=== PATIENT | female | born 1950 | race Caucasian/White ===

== ENCOUNTER 2019-06-08 09:03 | Emergency (ER) | payer MEDICARE, BC ==
[~2019-06-08] VITALS: Ht 152.4 cm; Wt 65.0 kg
[~2019-06-08 09:03] MED LIST: ASPI-482 PO; DILT300C2 PO; LOSA50TA86 PO; NEBI5TAB2 PO; OMEP20CA5 PO; RALO60TA PO; SIMV20TA3 PO
[2019-06-08 09:40] LABS: BASO # 0.1 x10^3/uL (0.0-0.2); BASO % 1 % (0-3); EOS # 0.4 x10^3/uL (0.0-0.7); EOS % 3 % (0-3); HEMATOCRIT 48.7 % (36.0-47.0); HEMOGLOBIN 15.7 g/dL (12.0-15.5); LYMPH # 2.8 x10^3/uL (1.0-4.8); LYMPH % 18 % (24-48); MEAN CORPUSCULAR HEMOGLOBIN 29 pg (25-35); MEAN CORPUSCULAR HGB CONC 32 g/dL (31-37); MEAN CORPUSCULAR VOLUME 90 fL (79-100); MONO # 1.5 x10^3/uL (0.0-1.1); MONO % 9 % (0-9); NEUT # 11.2 x10^3uL (1.8-7.7); NEUT % 70 % (31-73); PLATELET COUNT 376 x10^3/uL (140-400); RED BLOOD COUNT 5.42 x10^6/uL (3.50-5.40); RED CELL DISTRIBUTION WIDTH 14.1 % (11.5-14.5)
--- NOTE | 2019-06-08 09:53 | RAD ---
AP portable chest radiograph Clinical History: Chest pain. An AP erect portable digital radiograph of the chest was obtained. No previous studies are available for comparison. The cardiac silhouette is mildly enlarged. The thoracic aorta is mildly tortuous. There is a large hiatal hernia which contains air. No acute pulmonary infiltrate is seen. No pneumothorax or pleural effusion is noted. Degenerative changes are seen involving the thoracic spine and both shoulders. IMPRESSION: Large hiatal hernia. No acute pulmonary infiltrate is seen. Electronically signed by: Shaggy Sandoval MD (06/08/2019 9:50 AM) [facility]
[2019-06-08] MEDS ORDERED: ALPRAZolam 0.25 MG TABLET PO ONE (10:15)
--- NOTE | 2019-06-08 10:39 | ED.ADGEN ---
Past History Past Medical History: High Cholesterol, Hypertension Past Surgical History: Hysterectomy Alcohol Use: Occasionally Drug Use: None Adult General Chief Complaint Chief Complaint High blood pressure HPI HPI Patient is a 68-year-old female with history of hypertension dyslipidemia who presents with asymptomatic hypertension. Patient states she really routinely checks blood pressure. This morning, the patient's blood pressure was 150s over 100 on second recheck. Patient became concerned as she is currently out of town in one week and wanted to have her blood checked in the emergency department. Patient denies chest pain chest tightness palpitations shortness breath, headache. She does report feeling anxious or stressed after checking her blood pressure. This noted her heart rate is a sinus rhythm at a rate of 135. Patient states that her resting heart rate is usually in the 80s to 90s but that is unusual that her heart rate over 100. No recent illnesses. No missed medications. No other acute symptoms or complaints.[] Review of Systems Review of Systems Review symptoms as per history of present illness. All other review symptoms are negative. All other systems were reviewed and found to be within normal limits, except as documented in this note. Current Medications Current Medications Current Medications Medications (Trade) Dose Ordered Sig/Lacey Start Time Stop Time Status Last Admin Dose Admin Alprazolam (Xanax) 0.25 mg 1X ONCE 06/08/19 10:15 06/08/19 10:16 DC 06/08/19 10:32 0.25 MG Clonidine HCl (Catapres) 0.1 mg 1X ONCE 06/08/19 11:15 06/08/19 11:16 DC 06/08/19 11:25 0.1 MG Sodium Chloride 1,000 ml @ 1,000 mls/hr 1X ONCE 06/08/19 12:45 06/08/19 13:44 06/08/19 13:05 1,000 MLS/HR Allergies Allergies Allergies Coded Allergies Type Severity Reaction Last Updated Verified Penicillins Allergy Mild HIVES 02/28/14 No Sulfa (Sulfonamide Antibiotics) Allergy Mild HIVES 02/28/14 No Physical Exam Physical Exam Constitutional: Well developed, well nourished, no acute distress, non-toxic appearance. [] HENT: Normocephalic, atraumatic, bilateral external ears normal, oropharynx moist, no oral exudates, nose normal. [] Eyes: PERRLA, EOMI, conjunctiva normal, no discharge. [] Neck: Normal range of motion, no tenderness, supple, no stridor. [] Cardiovascular: Tachycardic[] Lungs & Thorax: Bilateral breath sounds clear to auscultation [] Abdomen: Bowel sounds normal, soft, no tenderness. [] Skin: Warm, dry, no erythema, no rash. [] Back: No tenderness, no CVA tenderness. [] Extremities: No tenderness, no cyanosis, no clubbing, ROM intact, no edema. [] Neurologic: Alert and oriented X 3, normal motor function, normal sensory function, no focal deficits noted. [] Psychologic: Affect normal, judgement normal, mood normal. [] Current Patient Data Vital Signs Vital Signs Date Time Temp Pulse Resp B/P (MAP) Pulse Ox O2 Delivery O2 Flow Rate FiO2 06/08/19 11:25 147/79 06/08/19 09:03 98.3 150 22 97 Room Air Lab Results Laboratory Tests Test 06/08/19 09:15 06/08/19 10:28 06/08/19 12:39 White Blood Count 16.0 x10^3/uL (4.0-11.0) H Red Blood Count 5.42 x10^6/uL (3.50-5.40) H Hemoglobin 15.7 g/dL (12.0-15.5) H Hematocrit 48.7 % (36.0-47.0) H Mean Corpuscular Volume 90 fL (79-100) Mean Corpuscular Hemoglobin 29 pg (25-35) Mean Corpuscular Hemoglobin Concent 32 g/dL (31-37) Red Cell Distribution Width 14.1 % (11.5-14.5) Platelet Count 376 x10^3/uL (140-400) Neutrophils (%) (Auto) 70 % (31-73) Lymphocytes (%) (Auto) 18 % (24-48) L Monocytes (%) (Auto) 9 % (0-9) Eosinophils (%) (Auto) 3 % (0-3) Basophils (%) (Auto) 1 % (0-3) Neutrophils # (Auto) 11.2 x10^3uL (1.8-7.7) H Lymphocytes # (Auto) 2.8 x10^3/uL (1.0-4.8) Monocytes # (Auto) 1.5 x10^3/uL (0.0-1.1) H Eosinophils # (Auto) 0.4 x10^3/uL (0.0-0.7) Basophils # (Auto) 0.1 x10^3/uL (0.0-0.2) Segmented Neutrophils % 58 % (35-66) Band Neutrophils % 2 % (0-9) Lymphocytes % 22 % (24-48) L Atypical Lymphocytes % (Manual) 1 % (0-0) H Monocytes % 9 % (0-10) Eosinophils % 7 % (0-5) H Basophils % 1 % (0-3) Platelet Estimate Increased (ADEQUATE) Sodium Level 139 mmol/L (136-145) Potassium Level 3.0 mmol/L (3.5-5.1) L Chloride Level 102 mmol/L (98-107) Carbon Dioxide Level 25 mmol/L (21-32) Anion Gap 12 (6-14) Blood Urea Nitrogen 14 mg/dL (7-20) Creatinine 1.0 mg/dL (0.6-1.0) Estimated GFR (Cockcroft-Gault) 54.8 BUN/Creatinine Ratio 14 (6-20) Glucose Level 157 mg/dL (70-99) H Calcium Level 9.4 mg/dL (8.5-10.1) Total Bilirubin 0.6 mg/dL (0.2-1.0) Aspartate Amino Transferase (AST) 20 U/L (15-37) Alanine Aminotransferase (ALT) 26 U/L (14-59) Alkaline Phosphatase 69 U/L (46-116) Troponin I Quantitative < 0.017 ng/mL (0-0.055) Total Protein 7.8 g/dL (6.4-8.2) Albumin 3.7 g/dL (3.4-5.0) Albumin/Globulin Ratio 0.9 (1.0-1.7) L D-Dimer (Pretty) 0.48 mg/L (0.00-0.50) Urine Collection Type Unknown Urine Color Yellow Urine Clarity Clear Urine pH 6.0 Urine Specific [place] <=1.005 Urine Protein Neg (NEG-TRACE) Urine Glucose (UA) Neg mg/dL (NEG) Urine Ketones (Stick) Neg mg/dL (NEG) Urine Blood Neg (NEG) Urine Nitrite Neg (NEG) Urine Bilirubin Neg (NEG) Urine Urobilinogen Dipstick 0.2 mg/dL (0.2 mg/dL) Urine Leukocyte Esterase Neg (NEG) Urine RBC 0 /HPF (0-2) Urine WBC 1-4 /HPF (0-4) Urine Squamous Epithelial Cells Occ /LPF Urine Transitional Epithelial Cells Few /LPF Urine Bacteria 0 /HPF (0-FEW) EKG EKG [EKG: Sinus tach, rate 116.] Radiology/Procedures Radiology/Procedures [Chest x-ray: Large hiatal hernia noted to be present.] Course & Med Decision Making Course & Med Decision Making Pertinent Labs and Imaging studies reviewed. (See chart for details) [Additional with asymptomatic hypertension and tach with heart rate 130s. Heart rate is sinus rhythm. Patient also noted to have elevation of white blood cell count but is without obvious source off infection. Heart rate improved with rest, and IV fluids. Heart rate at 102 on this departure which patient states is baseline range. Recommend following up with PCP early next week for reevaluation. Patient agrees to return to the emergency department should she have any new or concerning symptoms in the meantime..] Final Impression Final Impression #1 tachycardia #2 accelerated hypertension[] Dragon Disclaimer Dragon Disclaimer This electronic medical record was generated, in whole or in part, using a voice recognition dictation system. CIPRIANO OWUSU DO Jun 08, 2019 10:39
[2019-06-08] MEDS ORDERED: cloNIDine HCL 0.1 MG TABLET PO ONE (11:15)
[2019-06-08 11:33] LABS: ALBUMIN 3.7 g/dL (3.4-5.0); ALBUMIN/GLOBULIN RATIO 0.9 (1.0-1.7); CALCIUM 9.4 mg/dL (8.5-10.1); GFR 54.8; TOTAL BILIRUBIN 0.6 mg/dL (0.2-1.0); TOTAL PROTEIN 7.8 g/dL (6.4-8.2)
[2019-06-08 11:57] LABS: % ATYL 1 % (0-0); % BANDS 2 % (0-9); % BASOS 1 % (0-3); % EOS 7 % (0-5); % LYMPHS 22 % (24-48); % MONOS 9 % (0-10); % SEGS 58 % (35-66); PLT ESTIMATE INCREASED (ADEQUATE)
[2019-06-08] MEDS ORDERED: IV NORMAL SALINE 1,000ML 1,000 ML IV ONE (12:45)
[2019-06-08 13:05] LABS: BACTERIA,URINE 0 /HPF (0-FEW); BILIRUBIN,URINE NEG (NEG); CLARITY,URINE CLEAR; COLOR,URINE YELLOW; GLUCOSE,URINE NEG (NEG); NITRITE,URINE NEG (NEG); RBC,URINE 0 /HPF (0-2); SQUAMOUS EPITHELIAL CELL,UR OCC /LPF; UROBILINOGEN,URINE 0.2 mg/dL (0.2 mg/dL)
[2019-06-08 13:37] VITALS: BP 135/77
--- NOTE | 2019-06-10 03:37 | EKG ---
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
== END 2019-06-08 13:50 | disposition home or self-care (01) ==
LOC: ER 09:03
DX: I10 Essential (primary) hypertension (principal); R00.0 Tachycardia, unspecified; E78.00 Pure hypercholesterolemia, unspecified; E78.5 Hyperlipidemia, unspecified; Z88.0 Allergy status to penicillin; Z88.2 Allergy status to sulfonamides
CPT/HCPCS: 36415; 71045; 80053; 81001; 84443; 84484; 85007; 85025; 85379; 93005; 99285-25; J7030